=== PATIENT | female | born 1955 | race Two or more races ===

== ENCOUNTER 2024-11-10 16:59 | Emergency (ER) | payer OTHER, MEDICAID ==
[~2024-11-10] VITALS: Ht 170.2 cm; Wt 68.0 kg
[2024-11-10] MEDS: LIDOCAINE 1% HCL (LOCAL ANESTH.) INJ 20ML MDV ONE (18:06)
--- NOTE | 2024-11-10 18:14 | ED.PDOC ---
[place]. trauma (HPI) HPI Comments 69 y.o female presents to the ED for an evaluation of a laceration s/p trauma. Patient reports she got out of her doctor's appointment, had her dog in the car and when she opened the door, her dog jumped on the delivery route driver's seat suddenly, knocking her down to the floor. Patient presents with a headache and a 4cm laceration to her right sided forehead. Bleeding is controlled. Patient denies any LOC, nausea or vomiting. No skull depressions or deformities. Patient denies any other physical trauma as due to the fall. Vital signs were stable. Chief Complaint: Laceration Time Seen by MD: 18:00 Reviewed notes: Nurses Notes, Medications, Allergies Allergies: Coded Allergies: Codeine (Verified Allergy, Unknown, 11/10/24) Information Source: Patient Mode of Arrival: EMS Severity: Moderate Timing: Hours Duration: Since onset Location: Head Location of laceration: Head Mechanism: Blunt trauma, Fall Associated signs and symtoms: Headache Past Medical History PAST MEDICAL HISTORY: Denies Surgical History: Denies all surgeries [employer] History: No Pertinent [employer] History Family History Family History: Reviewed,noncontributory to illness Social History Smoker: Non-Smoker Alcohol: Denies ETOH Use Drugs: Denies Drug Use Lives In: Home Constitutional: denies: chills, diaphoresis, fatigue, fever, malaise, sweats, weakness, others EENTM: denies: blurred vision, double vision, ear bleeding, ear discharge, ear drainage, ear pain, ear ringing, eye pain, eye redness, hearing loss, mouth pain, mouth swelling, nasal discharge, nose bleeding, nose congestion, nose pain , photophobia, tearing, throat pain, throat swelling, voice changes, others Respiratory: denies: cough, hemoptysis, orthopnea, SOB at rest, shortness of breath, SOB with excertion, stridor, wheezing, others Cardiovascular: denies: chest pain, dizzy spells, diaphoresis, Dyspnea on exertion, edema, irregular heart beat, left arm pain, lightheadedness, palpitations, PND, syncope, others Gastrointestinal: denies: abdomen distended, abdominal pain, blood streaked bowels, constipated, diarrhea, dysphagia, difficulty swallowing, hematemesis, melena, nausea, poor appetite, poor fluid intake, rectal bleeding, rectal pain, vomiting, others Genitourinary: denies: abnormal vagina bleeding, burning, dyspareunia, dysuria, flank pain, frequency, hematuria, incontinence, pain, , vagina discharge, urgency, others Neurological: reports: headache; denies: dizziness, fainting, left sided numb ness, left sided weakness, numbness, paresthesia, pre-existing deficit, right sided numbness, right sided weakness, seizure, speech problems, tingling, tremors, weakness, others Musculoskeletal: denies: back pain, gout, joint pain, joint swelling, muscle pain, muscle stiffness, neck pain, others Integumetry: reports: laceration (Right-sided forehead); denies: bruises, change in color, change in hair/nails, dryness, lesions, lumps, rash, wounds, others Allergic/Immunocompromised: denies: Difficulty Healing, Frequent Infections, Hives, Itching, others Hematologic/Lymphatic: denies: anemia, blood clots, easy bleeding, easy bruising, swollen glands, others Endocrine: denies: excessive hunger, excessive sweating, excessive thirst, excessive urination, flushing, intolerance to cold, intolerance to heat, unexplained weight gain, unexplained weight loss, others Psychiatric: denies: anxiety, bipolar disorder, depression, hopeless, panic disorder, schizophrenia, sleepless, suicidal, others All Other Systems: Reviewed and Negative Physical Exam General Appearance: Mild Distress (Moderate distress due to anxiety related to her injury as well as pain.), Normal HEENT: Head (Patient sustained a 4+ cm J-shaped laceration to the right sided forehead superior to the eyebrow. No active bleed. No skull depression or deformity. Patient denies any eye involvement. Patient denies any vision change or any other facial pain concerns.), Pharynx Normal, TMs Normal Neck: Full Range of Motion, Non-Tender, Normal, Normal Inspection Respiratory: Chest Non-Tender, Lungs Clear, No Accessory Muscle Use, No Respiratory Distress, Normal Breath Sounds Cardiovascular: No Edema, No JVD, No Murmur, No Gallop, Normal Peripheral Pulses, Regular Rate/Rhythm Breast Exam: Deferred Gastrointestinal: No Organomegaly, Non Tender, No Pulsatile Mass, Normal Bowel Sounds, Soft Genitalia: Deferred Pelvic: Deferred Rectal: Deferred Extremities: No calf tenderness, Normal inspection Neurologic: Alert Cerebellar Function: NOT DONE Reflexes: NOT DONE Skin: Lacerations (See HEENT for description of right-sided forehead laceration) Lymphatic: No Adenopathy Was a procedure done? Was a procedure done?: Yes Sedation Sedation?: No Other Procedure Notes 5 cc of 1% lidocaine was utilized for local anesthesia. Sterile field was placed. Copious irrigation performed. Twelve 4-0 Ethilon sutures were utilized in a simple interrupted fashion to close the 4 cm right-sided forehead laceration. Minimal blood loss. Patient tolerated procedure well. Clean dressing applied. Differential Diagnosis Multiple Trauma: Closed Head Injury, Abrasions, Contusion, Laceration X-Ray, Labs, Meds, VS Vital Signs Date Time Temp Pulse Resp B/P (MAP) Pulse Ox O2 Delivery O2 Flow Rate FiO2 11/10/24 17:05 98.2 88 17 137/85 96 98.2 Current Medications Medications (Trade) Dose Ordered Sig/Christie Route Start Time Stop Time Status Last Admin Diphtheria/ Tetanus/Acell Pertussis (Boostrix T-Dap) 0.5 ml ONCE ONCE IM 11/10/24 18:45 11/10/24 18:46 DC 11/10/24 18:50 X-Ray, Labs, Meds, VS Comment Patient tolerated suturing procedure well. Advised patient utilize antibiotics as directed as well as pain medication as needed. Patient will return to ED or primary care provider in 8-10 days for re-evaluation and probable suture re moval. Time of 1ST Reevaluation: 19:03 Reevaluation 1ST: Improved Consultation: PCP Patient Education/Counseling: Diagnosis, Treatment, Prognosis Family Education/Counseling: Diagnosis, Treatment, No Family Present Departure 1 Departure Time of Disposition: 19:03 Impression: Primary Impression: Facial trauma Additional Impression: Forehead laceration Disposition: HOME / SELF CARE / HOMELESS Condition: Stable Additional Instructions: Advised patient utilize antibiotics as directed, pain medication as needed and additionally, patient will need to follow up with the primary care provider or r etjill to ED in 8-10 days for re-evaluation and probable suture removal. e-Prescriptions Acetaminophen (Acetaminophen) 500 Mg Tab 500 MG PO Q4HP PRN, #30 TAB Prov: AGNES BARNES PAC 11/10/24 Ibuprofen Micronized (Ibuprofen) 600 Mg Tab 600 MG PO Q6HP PRN, #20 TAB Prov: AGNES BARNES PAC 11/10/24 Cephalexin (KEFLEX CAPSULE) 250 Mg Cp 1 CAP PO QID for 7 Days, #28 CAP Prov: AGNES BARNES PAC 11/10/24 Discharged With: Self, Friend Critical Care Note Critical Care Time?: No Stability Stability form required: No I personally scribed for AGNES BARNES PAC ([email or web address]) on 11/10/24 at 18:14. Electronically submitted by Clarisa Langston ([facility]). AGNES BARNES PAC Nov 10, 2024 18:14
[2024-11-10] MEDS: TETANUS-DIPTH-ACEL PERTUSSIS 0.5ML SYR Tdap IM ONE (18:50)
[2024-11-10] MEDS ORDERED: IBUP1TAB5 PO (19:04)
[2024-11-10] MEDS ORDERED: CEPH250C PO (19:04)
[2024-11-10] MEDS ORDERED: ACET500T58 PO (19:04)
[2024-11-10 19:35] VITALS: BP 142/75; PULSE 75; RESP 18; TEMP 98.3; O2SAT 96
== END 2024-11-10 19:53 | disposition home or self-care (01) ==
LOC: EDBD 16:59 → ER 16:59
DX: S01.81XA Laceration without foreign body of other part of head, initial encounter (principal); Z88.5 Allergy status to narcotic agent; X58.XXXA Exposure to other specified factors, initial encounter; Y93.89 Activity, other specified; Y92.89 Other specified places as the place of occurrence of the external cause; Y99.8 Other external cause status
CPT/HCPCS: 12013; 90471; 90715; 99283; J2003